=== PATIENT | female | born 1960 | race Caucasian/White ===

== ENCOUNTER 2017-05-22 16:20 | Outpatient (RCR) | payer OTHER, SELFPAY ==
--- NOTE | 2017-05-22 17:23 | HP.PTEVAL ---
Patient's Visit Information MARCIAL SONI is a 56 year old F referred to Physical Therapy by Tonya PERALTA with a diagnosis of Poor balance and paraesthesia. Date of Evaluation: 05/22/17 Physical Therapist: Manuel Perla DPT, [place] - Visit Plan Frequency: 3x /Week Duration: 4 Weeks Plan: 3x/week for 3-4 weeks for streching upper legs(taught to patient today), teaching strength of posture and LE in gym and progressing to I at [employer]. Also functional strength of lunges, squats, steps as tolerated by patient - Subjective Subjective: 20 years ago when having son, had symptoms consistent with MS. No diagnosis of MS at the time. Gait is abnormal, needs UE to get up steps, fatigued after two flights of steps, in/out car is a challenge. Coordination can be a problem. Needs shopping cart at store for balance, can't wear heels. Is also glucose intolerant and needs to exercise. Will see neurologist in a couple weeks and had an MRI which was normal a couple weeks ago. Falling is periodic as balance is off, weak going up steps. No dizzyness. Feet get tingly on and off. Now on thyroid meds and 85% better, gets through most of shopping. Sleep is not good, has disturbances from ??? Been that way for 15 years. Constant pain throughout body, worse in morning 3-8/10 and describes it as being all over. HEP: no. Has no stamina. 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 Basic ADLs are done but can be challenging with stamina later in day. Hobbies: remodel her house and this is limited to cleaning up due to fatigue. Lifting legs to put pants on and get into bed especially R can be problematic due to weakness. Gets tension WYNNE fairly often and has complicated migraines in the past. once every 3 months to a week long. - Pain WYNNE Pain Intensity (Out of 10): 0 Pain Intensity Range: 0, 7 - Objective Gait into PT is normal and I without AD, steps are reciprocal with notable weakness ascending requiring UE adn ecc weakness descending. Transfer from chair is I withou UE today. Quad mod tight, HS to 0 90/90 test but firmness felt. LE aROM WFL. strength LE 3+ in hips ext adn abd, 4- flexion, knees are 4-/5 adn ankles 4+/5 with good inv /ev coordination. reflexes 2/3 patella and achilles. Sensation WNL to gross light touch in LE. Posture is FW head and kyphosis in T/S. Coordination to reciprocal toe tapping and heel tapping is good. heel to lezama test is good. UE aROM WFL and strength 4-/5 - Balance Scores Functional Gait Assessment Score: 27 % Disability: 10.0000 CATSIB Score (Max score 120 seconds): 120 - Goals Goal 1:: Pt report 50% improvement in strength and abiliities to get out of car and walk through gorcery store without needing cart. Goal Time Frame: 4-6 Weeks Goal 2:: Pt I with approp gym/home strength to reduce future problems. Goal Time Frame: 4-6 Weeks Goal 3:: 3030 FGA to minimize fall risk. Goal Time Frame: 4-6 Weeks - Rehabilitation Potential Physical Therapy Diagnosis: Weakness adn mobility deficits. Clinically is weak but good balance, subjectively describibg neurologic fatigue. Rehabilitation Potential: Questionable - Anticipated Interventions Patient/Client Instruction: Educate patient on: Condition, Plan of Care For the Purpose of:: To decrease pain, To improve muscle performance and motor function, To increase tolerance to activity/condition/position Therapeutic Exercise to Include: Strength training, Flexibilty training, Active ROM For the Purpose of:: To decrease pain, To increase ROM, To improve nutrient delivery to tissue, To improve muscle performance and motor function, To improve ability of physical actions for home/community/work/leisure Thank you for the opportunity to evaluate your patient. For Medicare and Medicare HMO plans, please review the plan of care and approve it. It will need to be FAXED BACK to us at [phone] for Medicare purposes. Please let me know if there are questions or concerns regarding this plan of care. Physician Signature: Date:
--- NOTE | 2017-08-20 08:51 | HP.PT.NRP ---
HP - Discharge Summary (1) - Patient Information MARCIAL SONI was seen in my office for initial evaluation on 05/22/17. The following Plan of Care was established for this patient: Initial Frequency: 3x /Week Initial Duration: 4 Weeks - Anticipated Interventions Patient/Client Instruction: Educate patient on: Condition, Plan of Care For the Purpose of:: To decrease pain, To improve muscle performance and motor function, To increase tolerance to activity/condition/position Therapeutic Exercise to Include: Strength training, Flexibilty training, Active ROM For the Purpose of:: To decrease pain, To increase ROM, To improve nutrient delivery to tissue, To improve muscle performance and motor function, To improve ability of physical actions for home/community/work/leisure This patient was last seen in our office 05/22/17. Pertinent comments regarding their Physical therapy will appear below: Pt seen for evaluation and plan of care established. Patient neglected to schedule any further visits. At this point, it has been over 3 months and I iwll discontinue due to nonattendance. At this point I will be discontinuing this patient from physical therapy. I would be happy to see this patient again in the future if found appropriate by the physician. Thank you! Manuel Perla, DPT, OC
== END 2017-05-22 19:00 | disposition home or self-care (01) ==
LOC: PT 16:20
PROVIDERS: Family Provider Internal Medicine; PCP Internal Medicine; Visit Provider Internal Medicine
DX: R26.89 Other abnormalities of gait and mobility (principal); R51 Headache; R20.2 Paresthesia of skin
CPT/HCPCS: 97110; 97162